=== PATIENT | male | born 1965 | race Native Hawaiian/Other Pacific Islander ===

== ENCOUNTER 2019-07-11 14:01 | Outpatient (CLI) | payer OTHER | END 2019-07-11 20:18 | disposition home or self-care (01) | LOC: MRI 14:01 | DX: H53.2 Diplopia (principal); H49.02 Third [oculomotor] nerve palsy, left eye ==

== ENCOUNTER 2019-07-12 11:33 | Outpatient (CLI) | payer OTHER ==
[2019-07-12 12:45] LABS: PLATELET COUNT 140 K/uL (142-355)
[2019-07-12 12:57] LABS: POTASSIUM 3.8 mmol/L (3.6-5.2)
== END 2019-07-12 20:20 | disposition home or self-care (01) ==
LOC: RESP 11:33
PROVIDERS: Specialist
DX: I10 Essential (primary) hypertension (principal); I20.8 Other forms of angina pectoris; Z79.899 Other long term (current) drug therapy; E11.9 Type 2 diabetes mellitus without complications; R60.9 Edema, unspecified; R35.8 Other polyuria
CPT/HCPCS: 36415; 80053; 80061; 80076; 83036; 85027; 93306

== ENCOUNTER 2019-07-15 08:06 | Outpatient (CLI) | payer OTHER ==
[~2019-07-15] VITALS: Ht 188 cm; Wt 114.8 kg
== END 2019-07-15 22:10 | disposition home or self-care (01) ==
LOC: NM 08:06
DX: I25.10 Atherosclerotic heart disease of native coronary artery without angina pectoris (principal)
CPT/HCPCS: A9500; J2785

== ENCOUNTER 2020-04-12 13:36 | Inpatient (IN) | payer OTHER ==
[~2020-04-12] VITALS: Ht 188 cm; Wt 115.4 kg
[2020-04-12 14:42] LABS: PLATELET COUNT 110 K/uL (142-355)
[2020-04-12 14:58] LABS: POTASSIUM 4.5 mmol/L (3.6-5.2); SODIUM 133 mmol/L (136-145)
[2020-04-12 16:00] VITALS: BP 149/83; TEMP 100.3
[2020-04-12 17:25] VITALS: BP 115/76; TEMP 100.1; Ht 188 cm; Wt 115.4 kg
[2020-04-12 20:00] VITALS: BP 168/90; TEMP 99.1
[2020-04-12 23:49] VITALS: BP 136/80; TEMP 101.6
[2020-04-13 04:57] LABS: PLATELET COUNT 90 K/uL (142-355)
[2020-04-13 05:15] LABS: POTASSIUM 3.9 mmol/L (3.6-5.2)
[2020-04-13 08:00] VITALS: BP 147/77; TEMP 101.1
[2020-04-13] MEDS ORDERED: OZEMPIC2 MG/1.5 M SC (08:29)
[2020-04-13] MEDS ORDERED: TRESIBA FL200 UNIT/M SC (08:30)
[2020-04-13] MEDS ORDERED: VITAMIN B-121000 MC2 PO (08:31)
[2020-04-13] MEDS ORDERED: TADALAFIL20 M1 PO (08:31)
[2020-04-13] MEDS ORDERED: DOCU100C10 PO ×2 (08:38→08:39)
[2020-04-13] MEDS ORDERED: NOVOLOG100 UNIT/M SC (08:38)
[2020-04-13] MEDS ORDERED: SUMATRIPTAN100 MG PO (08:40)
[2020-04-13] MEDS ORDERED: MONT10TA PO (08:41)
[2020-04-13] MEDS ORDERED: FLOVENT DI250 MCG/BL (08:44)
[2020-04-13] MEDS ORDERED: BUPR1SUBFM SL (08:45)
[2020-04-13] MEDS ORDERED: CLON0.5T36 PO (08:47)
[2020-04-13] MEDS ORDERED: METF500T PO (08:49)
[2020-04-13] MEDS ORDERED: AMLODIPINE PO (08:51)
[2020-04-13] MEDS ORDERED: VALS PO (08:51)
[2020-04-13] MEDS ORDERED: PEPCID20 MG PO (08:55)
[2020-04-13] MEDS ORDERED: PANTOPRAZOLE 40MG TA PO (08:56)
[2020-04-13] MEDS ORDERED: ADDERALL10 MG PO (08:57)
[2020-04-13 16:00] VITALS: BP 150/82; TEMP 99.3
[2020-04-13 16:15] VITALS: BP 150/82; TEMP 99
[2020-04-13 16:42] VITALS: BP 148/78; TEMP 99.4
[2020-04-13 17:14] VITALS: BP 149/81; TEMP 99.8
[2020-04-13 20:00] VITALS: BP 182/94; TEMP 100.1
[2020-04-14 00:18] VITALS: BP 161/83; TEMP 101.3
[2020-04-14 04:00] VITALS: BP 133/73; TEMP 99.8
[2020-04-14 05:50] LABS: PLATELET COUNT 96 K/uL (142-355)
[2020-04-14 05:57] LABS: POTASSIUM 4.4 mmol/L (3.6-5.2)
[2020-04-14 08:00] VITALS: BP 138/77; TEMP 98.1
[2020-04-14 12:00] VITALS: BP 146/82; TEMP 98.3
[2020-04-14 20:22] VITALS: BP 159/101; TEMP 98.8
[2020-04-15] VITALS (7 sets, daily range): BP systolic 127–195; BP diastolic 74–96; TEMP 98.6–100.2
[2020-04-15 06:21] LABS: POTASSIUM 4.3 mmol/L (3.6-5.2)
[2020-04-15 06:25] LABS: PLATELET COUNT 98 K/uL (142-355)
[2020-04-16 04:33] VITALS: BP 157/90; TEMP 99.1
[2020-04-16 06:05] LABS: PLATELET COUNT 96 K/uL (142-355)
[2020-04-16 08:10] VITALS: BP 117/79; TEMP 99.4
[2020-04-16 10:06] LABS: POTASSIUM 4.2 mmol/L (3.6-5.2)
[2020-04-16 12:00] VITALS: BP 143/88; TEMP 99.7
[2020-04-16 16:00] VITALS: BP 139/82; TEMP 98.5
[2020-04-16 20:00] VITALS: BP 143/73; TEMP 98.8
[2020-04-17] VITALS: BP 135/77; TEMP 98.8
[2020-04-17 03:56] VITALS: BP 141/76; TEMP 98.5
[2020-04-17 08:00] VITALS: BP 135/84; TEMP 98.2
[2020-04-17 09:56] LABS: PLATELET COUNT 106 K/uL (142-355)
[2020-04-17 12:00] VITALS: BP 160/90; TEMP 98
[2020-04-17] MEDS ORDERED: ASCO500T18 PO (13:31)
[2020-04-17] MEDS ORDERED: CHOL100034 PO (13:32)
[2020-04-17] MEDS ORDERED: ZOFRAN8 MG SL (13:34)
[2020-04-17] MEDS ORDERED: ALBUTEROL0.083 % INH (13:37)
[2020-04-17] MEDS ORDERED: ZINC220 MG PO (13:40)
== END 2020-04-17 13:30 | disposition home or self-care (01) | DRG 177 ==
LOC: MED/SURG 13:36
PROVIDERS: ADMIT Internal Medicine Endocrinology, Diabetes & Metabolism
PROC: 30233K1 Transfusion of Nonautologous Frozen Plasma into Peripheral Vein, Percutaneous Approach (ICD-10-PCS; principal; 2020-04-13)
DX: U07.1 COVID-19 (principal); J96.01 Acute respiratory failure with hypoxia; I25.10 Atherosclerotic heart disease of native coronary artery without angina pectoris; E78.49 Other hyperlipidemia; I12.9 Hypertensive chronic kidney disease with stage 1 through stage 4 chronic kidney disease, or unspecified chronic kidney disease; E11.22 Type 2 diabetes mellitus with diabetic chronic kidney disease; N18.3 Chronic kidney disease, stage 3 (moderate); G89.4 Chronic pain syndrome; F98.8 Other specified behavioral and emotional disorders with onset usually occurring in childhood and adolescence; R74.0 Nonspecific elevation of levels of transaminase and lactic acid dehydrogenase [LDH]
CPT/HCPCS: 36415; 80053; 84484; 85027; 85379; 85610; 85730; 86140; 86900; 86901; 94760; J0456; J0696; J1100; J1650; J2270; J2405; P9017

== ENCOUNTER 2020-06-29 15:20 | Outpatient (CLI) | payer OTHER ==
[~2020-06-29 15:20] MED LIST: ADDERALL10 MG PO; ALBUTEROL0.083 % INH; AMLODIPINE PO; ASCO500T18 PO; BUPR1SUBFM SL; CHOL100034 PO; CLON0.5T36 PO; DOCU100C10 PO; FLOVENT DI250 MCG/BL; METF500T PO; MONT10TA PO; NOVOLOG100 UNIT/M SC; OZEMPIC2 MG/1.5 M SC; PANTOPRAZOLE 40MG TA PO; PEPCID20 MG PO; SUMATRIPTAN100 MG PO; TADALAFIL20 M1 PO; TRESIBA FL200 UNIT/M SC; VALS PO; VITAMIN B-121000 MC2 PO; ZINC220 MG PO; ZOFRAN8 MG SL
== END 2020-06-29 22:29 | disposition home or self-care (01) ==
LOC: US 15:20
DX: R60.0 Localized edema (principal); I82.409 Acute embolism and thrombosis of unspecified deep veins of unspecified lower extremity; R06.02 Shortness of breath

== ENCOUNTER 2020-07-03 11:43 | Outpatient (CLI) | payer OTHER | END 2020-07-03 22:34 | disposition home or self-care (01) | LOC: RESP 11:43 | DX: I25.10 Atherosclerotic heart disease of native coronary artery without angina pectoris (principal) ==

== ENCOUNTER 2020-07-18 17:09 | Outpatient (CLI) | payer OTHER ==
[2020-07-18 18:32] LABS: PLATELET COUNT 212 K/uL (142-355)
[2020-07-18 18:45] LABS: POTASSIUM 4.4 mmol/L (3.6-5.2)
== END 2020-07-18 22:39 | disposition home or self-care (01) ==
LOC: LAB 17:09
PROVIDERS: Nurse Practitioner Family
DX: I10 Essential (primary) hypertension (principal); K21.9 Gastro-esophageal reflux disease without esophagitis; F90.0 Attention-deficit hyperactivity disorder, predominantly inattentive type; F41.9 Anxiety disorder, unspecified; F32.9 Major depressive disorder, single episode, unspecified; Z79.899 Other long term (current) drug therapy; R53.83 Other fatigue; R53.81 Other malaise; E53.8 Deficiency of other specified B group vitamins; E55.9 Vitamin D deficiency, unspecified; E11.9 Type 2 diabetes mellitus without complications
CPT/HCPCS: 80053; 80061; 82306; 82607; 83036; 84154; 84403; 84439; 84443; 84681; 85027

== ENCOUNTER 2020-09-05 17:11 | Outpatient (CLI) | payer OTHER | END 2020-09-05 20:01 | disposition home or self-care (01) | LOC: LAB 17:11 | PROVIDERS: ATTEND Nurse Practitioner Family | DX: E78.5 Hyperlipidemia, unspecified (principal); E11.9 Type 2 diabetes mellitus without complications; I10 Essential (primary) hypertension; F41.9 Anxiety disorder, unspecified; F32.9 Major depressive disorder, single episode, unspecified; E34.9 Endocrine disorder, unspecified; E53.8 Deficiency of other specified B group vitamins; E55.9 Vitamin D deficiency, unspecified; F90.0 Attention-deficit hyperactivity disorder, predominantly inattentive type | CPT/HCPCS: 82330 ==